=== PATIENT | male | born 1985 | race Caucasian/White ===

== ENCOUNTER → 2019-05-06 | Outpatient (CLI) | payer BC ==
[2019-05-06 10:52] LABS: SPERM MORPHOLOGY SENT TO REFERENC LAB
[2019-05-06 12:03] LABS: SPERM CONCENTRATION 5.1 X10^6/mL (>12.0); TOTAL SPERM COUNT 8.7 X10^6 (>33.0)
[2019-05-06 12:04] LABS: SPERM PROGRESSION 2
[2019-05-06 12:50] LABS: PERCENT NONMOTILE SPERM 84 %; PERCENT VIABLE 67 %; SEMEN VIABILITY STAINED 68; SEMEN VIABILITY UNSTAINED 137; SPERM VIABILITY 72 % (>58); TOTAL VIABILITY COUNT 205
== END ==
LOC: LAB 10:45
PROVIDERS: ATTEND Obstetrics & Gynecology Gynecology
DX: N46.11 Organic oligospermia (principal)
CPT/HCPCS: 89320

== ENCOUNTER → 2019-10-04 | Outpatient (CLI) | payer BC ==
[2019-10-04 08:28] LABS: SPERM MORPHOLOGY SENT TO REFERENC LAB
[2019-10-04 08:55] LABS: SPERM CONCENTRATION 9.3 X10^6/mL (>12.0); TOTAL SPERM COUNT 22.3 X10^6 (>33.0)
[2019-10-04 08:57] LABS: SPERM PROGRESSION 3
== END ==
LOC: LAB 08:06
PROVIDERS: ATTEND Student in an Organized Health Care Education/Training Program
DX: Z31.41 Encounter for fertility testing (principal)
CPT/HCPCS: 36415; 89320